=== PATIENT | female | born 1960 | race Two or more races ===

== ENCOUNTER 2018-09-16 09:18 | Outpatient (CLI) | payer OTHER ==
[~2018-09-16 09:18] MED LIST: BACLOFEN10 MG; CARDURA1 MG; CYMBALTA30 MG; DILTIAZEM 24HR240 MG; LOSARTAN-HCTZ1 EAC1; MELOXICAM15 MG; NORTRIPTYLINE H50 MG; PANTOPRAZOLE SO40 MG; SINGULAIR10 MG; SUCRALFATE1 GM
== END 2018-09-16 09:23 | disposition home or self-care (01) ==
LOC: SONOGRAMA 09:18
DX: E04.2 Nontoxic multinodular goiter (principal)

== ENCOUNTER 2020-07-11 10:23 | Outpatient (CLI) | payer OTHER | END 2020-07-11 10:27 | disposition home or self-care (01) | LOC: SONOGRAMA 10:23 | PROVIDERS: ATTEND Pathology Anatomic Pathology & Clinical Pathology | DX: D34 Benign neoplasm of thyroid gland (principal); E07.89 Other specified disorders of thyroid; E04.2 Nontoxic multinodular goiter ==

== ENCOUNTER 2021-01-16 11:25 | Outpatient (CLI) | payer OTHER | END 2021-01-16 12:38 | disposition home or self-care (01) | LOC: SONOGRAMA 11:25 | PROVIDERS: ATTEND Pathology Anatomic Pathology & Clinical Pathology | DX: D34 Benign neoplasm of thyroid gland (principal); E04.2 Nontoxic multinodular goiter ==